=== PATIENT | female | born 1995 | race American Indian/Alaskan Native ===

== ENCOUNTER 2021-06-11 00:20 | Emergency (ER) | payer MEDICAID, OTHER ==
[2021-06-11] MEDS ORDERED: Azithromycin 250 MG Tab PO ONE (05:12)
[2021-06-11] MEDS ORDERED: cefTRIAXone 500 MG Vial IM ONE (05:13)
[2021-06-11] MEDS ORDERED: Levonorgestrel 1.5 MG Tab PO ONE (05:14)
[2021-06-13 03:10] LABS: HBSAG SCREEN Negative (Negative)
[2021-06-13 07:19] LABS: HIV AB/P24 AG SCREEN Non Reactive (Non Reactive)
[2021-06-14 08:12] LABS: CHLAMYDIA TRACHOMATIS, NAA Negative (Negative); NEISSERIA GONORRHOEAE, NAA Negative (Negative)
[2021-06-16 22:10] LABS: T PALLIDUM ANTIBODIES Non Reactive (Non Reactive)
== END 2021-06-11 02:17 | disposition home or self-care (01) ==
LOC: LB.ED 00:20 → EEVIPCON 00:20 → LB.ED 02:17
DX: T76.21XA Adult sexual abuse, suspected, initial encounter (principal)
CPT/HCPCS: 36415; 86780; 86803; 87210; 87340; 87389; 87491; 87591; 96372; 99283; 99284; A9270; J0696